=== PATIENT | female | born 1975 | race Two or more races ===

== ENCOUNTER 2018-09-30 22:52 | Emergency (ER) | payer SELFPAY ==
[~2018-09-30] VITALS: Ht 152.4 cm; Wt 63.6 kg
[2018-09-30 22:59] VITALS: Ht 152.4 cm; Wt 63.6 kg
[2018-09-30] MEDS ORDERED: GLUCOPHAGE1000 MG PO (23:10)
[2018-10-01] MEDS ORDERED: FIORICET/ESGIC1 TAB PO (00:58)
[2018-10-01 01:56] VITALS: BP 121/82
== END 2018-10-01 01:57 | disposition home or self-care (01) ==
LOC: D.ER 22:52
DX: R51 Headache (principal)